=== PATIENT | male | born 1960 | race Caucasian/White ===

== ENCOUNTER → 2019-06-26 | Outpatient (CLI) | payer OTHER ==
[~2019-06-26] MED LIST: METOPROLOL 5 MG INJ; NITROGLYCERIN AEROSOL (4.9 GM)
[2019-06-26] MEDS: IOHEXOL 100 ML (11:17)
== END | disposition home or self-care (01) ==
LOC: C/S 10:09
DX: R94.39 Abnormal result of other cardiovascular function study (principal); R07.9 Chest pain, unspecified; R06.02 Shortness of breath
CPT/HCPCS: 75571; 75571-59; 75574

== ENCOUNTER 2019-07-30 09:05 | Day surgery (SDC) | payer OTHER ==
[2019-07-30] MEDS ORDERED: FENTAnyl 50 MCG/ML VIAL (11:00)
[2019-07-30] MEDS ORDERED: PROPOFOL 20 ML ×2 (11:00→11:20)
== END 2019-07-30 16:02 | disposition home or self-care (01) ==
LOC: GIL 09:05
DX: Z12.11 Encounter for screening for malignant neoplasm of colon (principal); K64.8 Other hemorrhoids; I85.00 Esophageal varices without bleeding; K62.89 Other specified diseases of anus and rectum
CPT/HCPCS: 43235